=== PATIENT | female | born 1990 | race Caucasian/White ===

== ENCOUNTER 2018-09-28 20:59 | Emergency (ER) | payer BC, OTHER ==
[~2018-09-28] VITALS: Ht 167.6 cm; Wt 61.2 kg
[~2018-09-28 20:59] MED LIST: IBUP-1060 PO; PREN-2 PO
[2018-09-28 21:10] VITALS: BP 124/83
--- NOTE | 2018-09-28 23:10 | PHYS DOC ---
Past Medical History Past Medical History: No Pertinent History (VARUN MIMS APRN) Past Surgical History: No Surgical History (VARUN MIMS APRN) Alcohol Use: None Drug Use: None (VARUN MIMS APRN) Adult General Chief Complaint Chief Complaint: ANKLE PROBLEM HPI HPI Patient is a 27 year old female who presents with 2 out of 10 left lateral ankle pain that began today after she hit her left ankle on a wooden stove. Pat ient states the pain is worse on touching the area. Denies anything specifically relieving the pain. She describes the pain as sharp and intermittent. (VARUN MIMS APRN) Review of Systems Review of Systems Constitutional: Denies fever or chills [] Musculoskeletal: Reports left ankle pain Integument: Denies rash or skin lesions [] Neurologic: Denies headache, focal weakness or sensory changes [] All other systems were reviewed and found to be within normal limits, except as documented in this note. (VARUN MIMS APRN) Allergies Allergies Allergies Coded Allergies Type Severity Reaction Last Updated Verified No Known Drug Allergies 03/22/13 No (XOCHILT FITZPATRICK DO) Physical Exam Physical Exam Constitutional: Well developed, well nourished, no acute distress, non-toxic appearance. [] Skin: Warm, dry, no erythema, no rash. [] Back: No tenderness, no CVA tenderness. [] Extremities: Left ankle with no obvious deformity. Slight tenderness on palpation of the left lateral ankle. Full range of motion to the left ankle and toes. +2 left pedal pulse. Cap refill less than 2 seconds the left toes. Neurologic: Alert and oriented X 3, normal motor function, normal sensory function, no focal deficits noted. [] Psychologic: Affect normal, judgement normal, mood normal. [] (VARUN MIMS APRN) Current Patient Data Vital Signs Vital Signs Date Time Temp Pulse Resp B/P (MAP) Pulse Ox O2 Delivery O2 Flow Rate FiO2 09/28/18 21:10 98.6 111 16 124/83 (97) 95 Room Air 98.6 (XOHCILT FITZPATRICK DO) EKG EKG [] (VARUN MIMS APRN) Radiology/Procedures Radiology/Procedures [] (VARUN MIMS APRN) Radiology/Procedures PROCEDURE: ANKLE LEFT 3V EXAM: 3 views left ankle DATE: 09/28/2018 10:28 PM INDICATION: Left lateral ankle pain, injury COMPARISON: No Prior FINDINGS/ IMPRESSION: 1. No evidence of acute fracture or dislocation. 2. Joint spaces are preserved without significant degenerative/proliferative change. 3. Ankle mortise is congruent. Talar dome is intact. 4. Mild soft tissue swelling overlying the lateral malleolus. Electronically signed by: Tang Hayward MD (09/28/2018 11:40 PM) [facility] (XOCHILT FITZPATRICK DO) Course & Med Decision Making Course & Med Decision Making Pertinent Labs and Imaging studies reviewed. (See chart for details) This is a 27-year-old female patient presenting to the ED today with left ankle pain after hitting her left ankle on a wooden stove. Left ankle x-rays interpreted by Dr. Fitzpatrick are negative for any acute findings. Clyde wrap bandage applied to the left ankle by me. Neurovascular exam is intact. Ice elevation encouraged. Follow-up with orthopedic doctor as needed. OTC pain relievers. (VARUN MIMS APRN) Dragon Disclaimer Dragon Disclaimer This electronic medical record was generated, in whole or in part, using a voice recognition dictation system. (VARUN MIMS APRN) Splinting Splinting : Location: left ankle Pre-Made Type: Clyde bandage Pre-Proc Neuro Vasc Exam: normal Post-Proc Neuro Vasc Exam: normal, unchanged from pre-exam (XOCHILT FITZPATRICK DO) Departure Departure Impression: Primary Impression: Contusion of left ankle Disposition: 01 HOME, SELF-CARE Condition: STABLE Referrals: NO PCP (PCP) JAMESON WOOD MD follow up in 2 weeks Patient Instructions: Contusion, [id number] Additional Instructions: You were evaluated in the emergency room for left ankle contusion. Your left ankle x-rays are negative for any acute findings. Try to ice and elevate the extremity. You can take [id number] pain relievers as needed. Use the Clyde bandage provided as tolerated and needed. Follow-up with orthopedic doctor provided in 1-2 weeks. Attending Signature Attending Signature I have reviewed the PA/EGG GRADER's note and plan of care. I was available for co nsultation as needed during the patient's visit in the emergency department. I agree with the clinical impression, plan, and disposition. (XOCHILT FITZPATRICK DO) Problem Qualifiers Primary Impression: Contusion of left ankle Encounter type: initial encounter Qualified Codes: S90.02XA - Contusion of left ankle, initial encounter EDITHVARUN BABCOCK FARRAH Sep 28, 2018 23:10 XOCHILT FITZPATRICK DO Sep 29, 2018 02:39
--- NOTE | 2018-09-28 23:43 | RAD ---
EXAM: 3 views left ankle DATE: 09/28/2018 10:28 PM INDICATION: Left lateral ankle pain, injury COMPARISON: No Prior FINDINGS/ IMPRESSION: 1. No evidence of acute fracture or dislocation. 2. Joint spaces are preserved without significant degenerative/proliferative change. 3. Ankle mortise is congruent. Talar dome is intact. 4. Mild soft tissue swelling overlying the lateral malleolus. Electronically signed by: Tang Hayward MD (09/28/2018 11:40 PM) [facility]
== END 2018-09-28 23:30 | disposition home or self-care (01) ==
LOC: ER 20:59
DX: S90.02XA Contusion of left ankle, initial encounter (principal); W22.8XXA Striking against or struck by other objects, initial encounter; Y93.89 Activity, other specified; Y92.89 Other specified places as the place of occurrence of the external cause; Y99.8 Other external cause status
CPT/HCPCS: 73610; 99284